=== PATIENT | female | born 1970 | race Caucasian/White ===

== ENCOUNTER 2023-12-28 13:23 | Emergency (ER) | payer BC ==
[~2023-12-28] VITALS: Ht 165.1 cm; Wt 98.6 kg
[2023-12-28] MEDS ORDERED: Ondansetron 4 MG/2 ML VIAL IV ONE (13:45)
[2023-12-28 13:52] LABS: BASO # 0.03 K/mm3 (0.02-0.10); EOS # 0.13 K/mm3 (0.04-0.40); EOS % 1.1 % (1.0-5.0); HEMATOCRIT 43.3 % (37.0-47.0); HEMOGLOBIN 14.5 g/dL (12.5-16.0); LYMPH# 2.89 K/mm3 (1.50-4.00); MEAN CELL VOLUME 90 fl (78-100); MEAN CORPUSCULAR HEMOGLOBIN 30 pg (27-31); MEAN CORPUSCULAR HGB CONC 34 g/dL (33-37); MEAN PLATELET VOLUME 9.7 fl (7.4-10.4); MONO # 0.81 K/mm3 (0.20-0.80); NEU # 8.25 K/mm3 (1.40-6.50); PLATELET COUNT 273 K/mm3 (130-400); RED CELL DISTRIBUTION WIDTH 13.4 % (11.5-14.5); WHITE BLOOD COUNT 12.2 K/mm3 (4.8-10.8)
[2023-12-28 13:59] LABS: ALBUMIN 4.5 g/dL (3.5-5.0)
[2023-12-28 14:01] LABS: CALCIUM 10.6 mg/dL (8.3-10.5)
[2023-12-28 14:02] LABS: TOTAL PROTEIN 7.3 g/dL (6.4-8.3)
[2023-12-28 14:04] LABS: TOTAL BILIRUBIN 0.3 mg/dL (0.2-1.2)
[2023-12-28] MEDS ORDERED: Meclizine 12.5 MG TAB PO ONE (15:00)
[2023-12-28 15:03] VITALS: BP 164/90
== END 2023-12-28 15:13 | disposition home or self-care (01) ==
LOC: ED 13:23
PROVIDERS: Family Medicine
DX: H81.09 Meniere's disease, unspecified ear (principal); H91.91 Unspecified hearing loss, right ear
CPT/HCPCS: J2405; J7120